=== PATIENT | female | born 1995 | race American Indian/Alaskan Native ===

== ENCOUNTER 2020-08-06 17:49 | Emergency (ER) | payer SELFPAY ==
[2020-08-06] MEDS ORDERED: IBUPROFEN 800 MG TAB PO ONE (18:46)
[2020-08-06 18:49] VITALS: BP 122/76
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
== END 2020-08-06 20:26 | disposition home or self-care (01) ==
LOC: ED 17:49
DX: S39.012A Strain of muscle, fascia and tendon of lower back, initial encounter (principal); S86.912A Strain of unspecified muscle(s) and tendon(s) at lower leg level, left leg, initial encounter; S13.4XXA Sprain of ligaments of cervical spine, initial encounter; R51.9 Headache, unspecified; Z98.890 Other specified postprocedural states; Z79.899 Other long term (current) drug therapy; V43.62XA Car passenger injured in collision with other type car in traffic accident, initial encounter; Y93.89 Activity, other specified; Y92.488 Other paved roadways as the place of occurrence of the external cause; Y99.8 Other external cause status
CPT/HCPCS: 70450; 72100; 72125